=== PATIENT | male | born 1945 | race Caucasian/White ===

== ENCOUNTER 2024-10-04 14:29 | Emergency (ER) | payer MEDICARE, OTHER ==
[~2024-10-04] VITALS: Ht 193 cm; Wt 90.7 kg
[2024-10-04 18:30] VITALS: BP 158/102; TEMP 97.5; O2SAT 99
== END 2024-10-04 18:31 ==
LOC: ER 14:35
DX: S60.311A Abrasion of right thumb, initial encounter (principal); I10 Essential (primary) hypertension; G20.A1 Parkinson's disease without dyskinesia, without mention of fluctuations; E78.1 Pure hyperglyceridemia; Z99.81 Dependence on supplemental oxygen; Z88.2 Allergy status to sulfonamides; W45.8XXA Other foreign body or object entering through skin, initial encounter; Y93.89 Activity, other specified; Y92.89 Other specified places as the place of occurrence of the external cause; Y99.8 Other external cause status